=== PATIENT | female | born 1945 | race Caucasian/White ===

== ENCOUNTER 2023-02-12 16:33 | Emergency (ER) | payer MEDICARE ==
[~2023-02-12] VITALS: Ht 157.5 cm; Wt 69.1 kg
[2023-02-12 17:26] LABS: BASOPHILS # (AUTO) 0.1 X10'3 (0-0.2); BASOPHILS % (AUTO) 0.9 % (0-1); EOSINOPHILS # (AUTO) 0.2 X10'3 (0-0.9); HEMATOCRIT 37.5 % (35.0-45.0); HEMOGLOBIN 12.5 g/dl (12.0-16.0); LYMPHOCYTES # (AUTO) 1.9 X10'3 (1.1-4.8); LYMPHOCYTES % (AUTO) 22.9 % (21-51); MEAN CORPUSCULAR HEMOGLOBIN 29.7 PG (27.0-31.0); MEAN CORPUSCULAR HGB CONC 33.4 g/dL (33.0-36.5); MEAN CORPUSCULAR VOLUME 88.8 FL (78-98); MEAN PLATELET VOLUME 8.2 FL (7.4-10.4); MONOCYTES % (AUTO) 12.2 % (2-12); NEUTROPHILS # (AUTO) 5.1 X10'3 (1.8-7.7); PLATELET COUNT 288 X10'3 (140-440); RED BLOOD COUNT 4.22 X10'6 (4.20-5.60); RED CELL DISTRIBUTION WIDTH 13.1 % (11.5-14.5); WHITE BLOOD COUNT 8.2 X10'3 (4.5-11.0)
[2023-02-12 17:54] LABS: ALANINE AMINOTRANSFERASE 31 U/L (12-78); ALBUMIN 3.5 G/DL (3.4-5.0); ALBUMIN/GLOBULIN RATIO 0.9 (1.1-1.5); ALKALINE PHOSPHATASE 46 IU/L (46-116); ANION GAP 9 (8-16); ASPARTATE AMINO TRANSFERASE 20 U/L (10-37); BILIRUBIN,TOTAL 0.4 MG/DL (0.1-1.0); BLOOD UREA NITROGEN 30 MG/DL (7-18); BUN/CREATININE RATIO 21.4 (10.0-20.0); CALCIUM 9.4 MG/DL (8.5-10.1); CHLORIDE 103 MMOL/L (99-107); GLUCOSE 99 MG/DL (70-104); POTASSIUM 4.1 MMOL/L (3.5-5.1); SODIUM 137 MMOL/L (135-145); TOTAL CARBON DIOXIDE 24.8 MMOL/L (24-32); TOTAL PROTEIN 7.6 G/DL (6.4-8.2); eCRCL 26 ML/MIN; eGFR 36 ML/MIN
[2023-02-12 23:05] VITALS: BP 143/72; PULSE 64; RESP 16; TEMP 98.6; O2SAT 95
== END 2023-02-12 23:06 | disposition home or self-care (01) ==
LOC: ER 16:33
DX: L03.113 Cellulitis of right upper limb (principal); W55.01XA Bitten by cat, initial encounter; Y93.89 Activity, other specified; Y92.89 Other specified places as the place of occurrence of the external cause; Y99.8 Other external cause status
CPT/HCPCS: 36415; 71045; 73200; 80053; 83605; 84145; 85025; 87040; 99284

== ENCOUNTER 2023-08-14 17:40 | Emergency (ER) | payer MEDICARE ==
[~2023-08-14] VITALS: Ht 157.5 cm; Wt 71.8 kg
[2023-08-14] MEDS ORDERED: PRED20TA PO (21:09)
[2023-08-14] MEDS ORDERED: CYCL-1 PO (21:09)
[2023-08-14] MEDS ORDERED: IBUP-1984 PO (21:09)
[2023-08-14] MEDS: oxyCODONE/APAP 5-325mg tablet PO ONE (21:43)
[2023-08-14] MEDS: ondansetron 4mg rapidly disintigrating tab PO ONE (21:43)
[2023-08-14] MEDS: dexamethasone sod phosphate 10mg/ml inj PO STA (21:45)
[2023-08-14] MEDS: ketorolac tromethamine 15mg/ml inj. IM ONE (21:47)
[2023-08-14 21:59] VITALS: BP 185/80; PULSE 65; RESP 16; TEMP 98; O2SAT 98
== END 2023-08-14 22:02 | disposition home or self-care (01) ==
LOC: ER 17:41
DX: M54.50 Low back pain, unspecified (principal); Z88.2 Allergy status to sulfonamides
CPT/HCPCS: 96372; 99284; J1100; J1885

== ENCOUNTER 2023-09-06 12:35 | Outpatient (CLI) | payer MEDICARE ==
[~2023-09-06 12:35] MED LIST: CYCL-1 PO
== END 2023-09-06 23:59 | disposition home or self-care (01) ==
LOC: RAD 12:35
PROVIDERS: ATTEND Nurse Practitioner Family
DX: M16.12 Unilateral primary osteoarthritis, left hip (principal); M54.42 Lumbago with sciatica, left side
CPT/HCPCS: 73503; 73552

== ENCOUNTER 2024-01-18 10:11 | Outpatient (CLI) | payer MEDICARE | END 2024-01-18 23:59 | disposition home or self-care (01) | LOC: VAS 10:11 | PROVIDERS: ATTEND Nurse Practitioner Family | DX: I70.1 Atherosclerosis of renal artery (principal); I10 Essential (primary) hypertension | CPT/HCPCS: 93975 ==